=== PATIENT | female | born 1965 | race Caucasian/White ===

== ENCOUNTER 2019-02-05 11:38 | Emergency (ER) | payer OTHER ==
[2019-02-05 12:05] VITALS: TEMP 98.4
[2019-02-05] MEDS ORDERED: KETOROLAC 30 MG/ML 1 ML VIAL IM STA (12:53)
[2019-02-05] MEDS ORDERED: HYDROcodone/APAP 7.5-325MG 1 EACH TAB PO ONE (12:53)
[2019-02-05] MEDS ORDERED: ACET/COD 300 MG/30 MG STARTER PACK 6 TAB BTL PO STA (13:38)
--- NOTE | 2019-02-05 13:40 | ED ---
Back Pain HPI - General Chief Complaint: Back Pain/Injury Stated Complaint: Tailbone and foot pain Time Seen by Provider: 02/05/19 12:12 Source: patient - History of Present Illness Initial Comments: 53-year-old female presenting today for chief complaint of low back pain rating down left leg down to her foot. Patient states that she has chronic back pain. She states she has had recent outpatient MRIs in [place] where she lives. She states she is on vacation. Patient denies any numbness of the lower extremity she denies any weakness urinary retention loss of bowel bladder control. Patient denies any fever or IV drug use. States she does have a distant history of thyroid cancer however that this was completely removed. Patient states that the Tylenol she is prescribed is not working. she states that her pain is increased since her visit admission. Remaining review of systems negative. Upon arrival patient appears well she is able to no signs of acute distress. Afebrile upon arrival. - Related Data Allergies Allergy/AdvReac Type Severity Reaction Status Date / Time No Known Allergies Allergy Verified 02/05/19 13:47 Review of Systems ROS Statement: Those systems with pertinent positive or pertinent negative responses have been documented in the HPI. ROS Other: All systems not noted in ROS Statement are negative. Past Medical History Past Medical History: CVA/TIA, Seizure Disorder Additional Past Medical History / Comment(s): chronic back pain epilepsy History of Any Multi-Drug Resistant Organisms: None Reported Past Surgical History: No Surgical Hx Reported Additional Past Surgical History / Comment(s): ectopic colonoscopy Past Psychological History: Anxiety, Depression Smoking Status: Never smoker Past Alcohol Use History: None Reported Past Drug Use History: None Reported General Exam - General Exam Comments Initial Comments: General: The patient is awake and alert, in no distress, and does not appear acutely ill. Eye: +3 mm pupils are equal, round and reactive to light, extra-ocular movements are intact. No nystagmus. There is normal conjunctiva bilaterally. No signs of icterus. Ears, nose, mouth and throat: There are moist mucous membranes and no oral lesions. Neck: The neck is supple, there is no tenderness or JVD. Cardiovascular: There is a regular rate and rhythm. No murmur, rub or gallop is appreciated. Respiratory: Lungs are clear to auscultation, respirations are non-labored, breath sounds are equal. No wheezes, stridor, rales, or rhonchi. Gastrointestinal: Soft, non-distended, non-tender abdomen without masses or organomegaly noted. There is no rebound or guarding present. Musculoskeletal: Normal inspection of the cervical thoracic and lumbar spine. There is no midline tenderness to palpation. Patient is positive straight leg raise bilaterally. Patient has full strength in lower extremities equal and comparison bilaterally patient is full sensation of the lower extremities including saddle region laterally. Dorsalis pedis pulses +2 equal comparison bilaterally. No lower extremity edema. Neurological: A&O x 3. CN II-XII intact, There are no obvious motor or sensory deficits. Coordination appears grossly intact. Speech is normal. Skin: Skin is warm and dry and no rashes or lesions are noted. Psychiatric: Cooperative, appropriate mood & affect, normal judgment. Course Vital Signs 02/05/19 02/05/19 12:00 13:56 Temperature 98.4 F Pulse Rate 61 60 Respiratory 18 16 Rate Blood Pressure 121/84 110/75 O2 Sat by Pulse 97 98 Oximetry Medical Decision Making - Medical Decision Making 53-year-old female presented for pain management of chronic back pain. Patient states has been aggravated since she has been admission. Patient states she frequently has exacerbations of her chronic low back pain. Patient states that the Tylenol is not working at home. Patient states she has had recent imaging studies are formed in [place]. Patient does not feel they're necessary today. Patient is neurovascularly intact. No findings on history taking as well as physical examination are concerning for cauda equina. Patient states she does have disc herniations which are consistent with patient's radicular symptoms. Patient is provided [place] emergency department as well as Toradol. Patient states she is feeling much better and ready for discharge. Patient is provided a starter pack for Tylenol No. 3 for breakthrough pain until patient returns home and has further evaluation by her established care with orthopedic surgery. Patient is agreeable care plan discharge at this time. I discussed the case maintained by Dr. Bingham is agreeable care plan discharge at this time. Disposition Clinical Impression: Acute exacerbation of chronic low back pain, Radiculopathy Disposition: HOME SELF-CARE Condition: Good Instructions (If sedation given, give patient instructions): Lumbar Radiculopathy (ED), Chronic Back Pain (DC) Additional Instructions: Please use medication as discussed. Please follow-up with family doctor in the next 2 days, and your orthopedic physician when home in [place]. Please return to emergency room if the symptoms increase or worsen or for any other concerns. Is patient prescribed a controlled substance at d/c from ED?: No Referrals: Nonstaff,Physician [Primary Care Provider] - 1-2 days Time of Disposition: 13:39
[2019-02-05 13:57] VITALS: BP 110/75; PULSE 60; RESP 16
== END 2019-02-05 13:57 | disposition home or self-care (01) ==
LOC: EC 11:38
DX: M54.16 Radiculopathy, lumbar region (principal); G89.29 Other chronic pain; M54.5 Low back pain; Z86.73 Personal history of transient ischemic attack (TIA), and cerebral infarction without residual deficits; Z98.890 Other specified postprocedural states; Z85.850 Personal history of malignant neoplasm of thyroid; Z90.89 Acquired absence of other organs
CPT/HCPCS: 99283; 96372; J1885